=== PATIENT | male | born 1975 | race Hispanic/Latino ===

== ENCOUNTER 2021-08-01 13:15 | Emergency (ER) | payer BC ==
[2021-08-01 14:21] LABS: Bilirubin Neg (Negative); Blood, Urine 25 (Negative); Clarity Clear (Clear); Glucose, Urine (Dipstick) Normal (Negative); Ketone, Urine 15 mg/dL (Negative); Leukocyte Negative (Negative); Nitrite Negative (Negative); Protein, Urine (Dipstick) 30 mg/dl (Neg-Trace)
[2021-08-01 14:36] LABS: Bacteria/HPF Rare-Few HPF (None Seen); RBC/HPF 0-3 HPF (0-3); Squamous Epithelial 0-3 HPF (0-3); WBC/HPF 0-3 HPF (0-3)
[2021-08-01] MEDS ORDERED: Acetaminophen 500 MG TAB ONE ×2 (14:48→14:52)
[2021-08-01 14:52] LABS: SARS-CoV-2 NAA Rapid Test Not Detected (NotDetected)
== END 2021-08-01 15:41 | disposition home or self-care (01) ==
LOC: CSHERS 13:15
DX: J18.9 Pneumonia, unspecified organism (principal); E03.9 Hypothyroidism, unspecified; Z20.822 Contact with and (suspected) exposure to COVID-19
CPT/HCPCS: 0240U; 71045; 81003; 81015; 87804

== ENCOUNTER 2023-07-24 09:49 | Emergency (ER) | payer BC ==
[2023-07-24] MEDS ORDERED: Ketorolac Tromethamine 30 MG/ML VIAL ONE (10:29)
[2023-07-24 10:47] LABS: #Basophils 0.1 10x3/uL (0.0-0.2); #Eosinphils 0.2 10x3/uL (0.0-0.5); #Monocytes 0.8 10x3/uL (0.0-1.1); #Neutrophils 6.1 10x3/uL (1.5-8.4); %Basophils 0.9 % (0.0-2.0); %Eosinophils 2.1 % (0.0-6.0); %Lymphocytes 32.7 % (18.0-47.0); %Monocytes 7.1 % (0.0-10.0); %Neutrophils 56.5 % (40.0-75.0); Hematocrit 46.4 % (38.8-50.0); Hemoglobin 15.9 g/dL (13.5-17.5); Mean Corpuscular HGB CONC 34.3 g/dL (32.0-36.0); Mean Corpuscular Volume 87.5 fl (81.2-95.1); Mean Platelet Volume 12.1 fl (7.4-10.4); Platelet Count 221 10x3/uL (150-450); RBC Distribution Width 13.8 % (11.5-14.5); White Blood Cell (WBC) Count 10.7 10x3/uL (3.5-10.5)
[2023-07-24 10:51] LABS: ALT (SGPT) 34 U/L (8-55); AST (SGOT) 21 U/L (5-34); Albumin 4.1 g/dL (3.5-5.0); Alkaline Phosphatase 61 U/L (40-110); Anion Gap 15 mmol/L (10-20); BUN (Urea Nitrogen) 15 mg/dL (8.9-20.6); Bilirubin, Total 0.3 mg/dL (0.2-1.2); Calc. Creatinine Clearance 0 mL/min (70-130); Calcium 8.7 mg/dL (7.8-10.44); Carbon Dioxide 22 mmol/L (22-29); Chloride 105 mmol/L (98-107); Estimated GFR 109; Globulin 2.9 g/dL (2.4-3.5); Glucose 124 mg/dL (70-105); Potassium 3.7 mmol/L (3.5-5.1); Sodium 138 mmol/L (136-145)
[2023-07-24 10:54] LABS: Troponin I Less than 0.010 ng/mL (< 0.028)
== END 2023-07-24 12:03 | disposition home or self-care (01) ==
LOC: CSHERS 09:49
DX: R09.1 Pleurisy (principal); E03.9 Hypothyroidism, unspecified
CPT/HCPCS: 71045; 80053; 84484; 85025; 85379; 93005; 94760; 96374; J1885